=== PATIENT | male | born 1995 | race Caucasian/White ===

== ENCOUNTER 2023-06-29 12:56 | Emergency (ER) | payer SELFPAY ==
[~2023-06-29] VITALS: Ht 175.3 cm; Wt 73.0 kg
[2023-06-29 12:59] VITALS: BP 174/59; PULSE 96; RESP 16; TEMP 98.7; O2SAT 99
[2023-06-29] MEDS ORDERED: ACETAMINOPHEN 325MG TABLET PO ONE (14:00)
[2023-06-29] MEDS ORDERED: ACETAMINOPHEN 325MG TABLET PO NR (15:45)
[2023-06-29] MEDS ORDERED: TOPUD PO (16:02)
[2023-06-29 16:08] LABS: CLARITY URINE CLEAR (CLEAR); COLOR URINE YELLOW (YELLOW); KETONES URINE NEGATIVE (NEGATIVE); LEUKOCYTE ESTERASE URINE NEGATIVE (NEGATIVE); NITRITE URINE NEGATIVE (NEGATIVE); OCCULT BLOOD URINE NEGATIVE (NEGATIVE); PH URINE 5.5 (4.5-8.0); PROTEIN URINE NEGATIVE (NEGATIVE); SPECIFIC GRAVITY URINE 1.006 (1.005-1.030); UROBILINOGEN URINE 0.2 E.U./dL (0.2-1.0)
== END 2023-06-29 16:22 | disposition home or self-care (01) ==
LOC: ER 13:21
DX: R10.9 Unspecified abdominal pain (principal)
CPT/HCPCS: 74176; 81003; 99284